=== PATIENT | female | born 1995 | race African-American/Black ===

== ENCOUNTER 2017-01-12 18:14 | Emergency (ER) | payer OTHER | END 2017-01-12 21:00 | disposition left against medical advice (07) | LOC: ER 20:17 | DX: R10.9 Unspecified abdominal pain (principal); Z53.21 Procedure and treatment not carried out due to patient leaving prior to being seen by health care provider ==

== ENCOUNTER 2019-06-25 01:42 | Emergency (ER) | payer OTHER ==
[~2019-06-25] VITALS: Ht 177.8 cm; Wt 68.0 kg
[2019-06-25] MEDS ORDERED: ACETAMINOPHEN 325MG TABLET PO ONE (02:15)
[2019-06-25 02:31] LABS: CLARITY URINE TURBID (CLEAR); COLOR URINE YELLOW (YELLOW); KETONES URINE 1+ (NEGATIVE); LEUKOCYTE ESTERASE URINE 3+ (NEGATIVE); NITRITE URINE NEGATIVE (NEGATIVE); OCCULT BLOOD URINE 2+ (NEGATIVE); PROTEIN URINE 2+ (NEGATIVE)
[2019-06-25 03:56] VITALS: BP 118/86
== END 2019-06-25 03:49 | disposition home or self-care (01) ==
LOC: ER 01:42
DX: O23.41 Unspecified infection of urinary tract in pregnancy, first trimester (principal); O26.891 Other specified pregnancy related conditions, first trimester; Z3A.09 9 weeks gestation of pregnancy; Z88.3 Allergy status to other anti-infective agents; Z88.8 Allergy status to other drugs, medicaments and biological substances
CPT/HCPCS: 81003; 81025; 87077; 87186; 99283

== ENCOUNTER 2019-11-09 12:26 | Observation (INO) | payer MEDICAID, OTHER ==
[~2019-11-09] VITALS: Ht 175.3 cm; Wt 86.2 kg
[2019-11-09 13:15] LABS: CLARITY URINE CLOUDY (CLEAR); COLOR URINE DARK YELLOW (YELLOW); KETONES URINE TRACE (NEGATIVE); LEUKOCYTE ESTERASE URINE 3+ (NEGATIVE); NITRITE URINE NEGATIVE (NEGATIVE); OCCULT BLOOD URINE TRACE (NEGATIVE); PH URINE 6.5 (4.5-8.0); PROTEIN URINE TRACE (NEGATIVE); SPECIFIC GRAVITY URINE 1.025 (1.005-1.030)
== END 2019-11-09 16:25 | disposition home or self-care (01) ==
LOC: 8 EST LDRP 12:26
PROVIDERS: ADMIT Obstetrics & Gynecology; ATTEND Obstetrics & Gynecology
DX: O46.93 Antepartum hemorrhage, unspecified, third trimester (principal); O26.893 Other specified pregnancy related conditions, third trimester; R10.9 Unspecified abdominal pain; Z3A.29 29 weeks gestation of pregnancy
CPT/HCPCS: 76805; 76818; 81003; 87086; 99281; G0378

== ENCOUNTER 2020-01-15 22:41 | Observation (INO) | payer OTHER ==
[~2020-01-15] VITALS: Ht 177.8 cm; Wt 92.5 kg
[2020-01-15] MEDS: LACTATED RINGERS 1,000 ML IV SCH (23:49)
[2020-01-16 00:18] LABS: CLARITY URINE CLEAR (CLEAR); COLOR URINE YELLOW (YELLOW); KETONES URINE NEGATIVE (NEGATIVE); LEUKOCYTE ESTERASE URINE 2+ (NEGATIVE); NITRITE URINE NEGATIVE (NEGATIVE); OCCULT BLOOD URINE NEGATIVE (NEGATIVE); PROTEIN URINE NEGATIVE (NEGATIVE); SPECIFIC GRAVITY URINE 1.017 (1.005-1.030)
[2020-01-16] MEDS: LACTATED RINGERS 1,000 ML IV SCH (01:30)
[2020-01-16] MEDS ORDERED: CEFAZOLIN 2,000 MG in DEXT 5% WATER 100 ML IV NR (02:00)
[2020-01-16] MEDS ORDERED: ACETAMINOPHEN 500MG TABLET PO NR (02:45)
[2020-01-16] MEDS ORDERED: PREN1TAB78 MT (03:20)
== END 2020-01-16 03:40 | disposition home or self-care (01) ==
LOC: 8 EST LDRP 22:41
PROVIDERS: ADMIT Obstetrics & Gynecology; ATTEND Obstetrics & Gynecology
DX: O26.893 Other specified pregnancy related conditions, third trimester (principal); O62.9 Abnormality of forces of labor, unspecified; M54.5 Low back pain; R10.30 Lower abdominal pain, unspecified; Z3A.38 38 weeks gestation of pregnancy
CPT/HCPCS: 81003; 96361; 96365; 99281; G0378; J0690; J7060; 96360

== ENCOUNTER 2020-01-25 00:23 | Inpatient (IN) | payer MEDICAID, OTHER ==
[~2020-01-25] VITALS: Ht 177.8 cm; Wt 93.0 kg
[~2020-01-25 00:23] MED LIST: PREN1TAB78 MT
[2020-01-25 01:34] LABS: CLARITY URINE CLEAR (CLEAR); COLOR URINE YELLOW (YELLOW); KETONES URINE NEGATIVE (NEGATIVE); LEUKOCYTE ESTERASE URINE NEGATIVE (NEGATIVE); NITRITE URINE NEGATIVE (NEGATIVE); OCCULT BLOOD URINE NEGATIVE (NEGATIVE); PROTEIN URINE NEGATIVE (NEGATIVE); SPECIFIC GRAVITY URINE 1.009 (1.005-1.030); UROBILINOGEN URINE 0.2 E.U./dL (0.2-1.0)
[2020-01-25] MEDS ORDERED: DEXT 5%/LR + PITOCIN 20UNITS/L 1,000 ML IV SCH ×2 (02:35→12:27)
[2020-01-25] MEDS ORDERED: NALOXONE HCL 0.4 MG/ML 1ML VIAL IM PRN (02:45)
[2020-01-25] MEDS ORDERED: MISOPROSTOL 100MCG TABLET VG SCH (02:45)
[2020-01-25] MEDS ORDERED: LIDOCAINE HCL 1% 20ML VIAL (Pyxis) INJ INFIL SCH (02:45)
[2020-01-25] MEDS ORDERED: METHYLERGONOVINE MALEATE 0.2 MG/ML IM PRN (02:45)
[2020-01-25] MEDS ORDERED: MISOPROSTOL 100MCG TABLET VG PRN (02:45)
[2020-01-25] MEDS ORDERED: CARBOPROST TROMETHAMINE 250 MCG/ML AMPUL IM PRN (02:45)
[2020-01-25] MEDS ORDERED: AMPICILLIN 2,000 MG in SODIUM CHLORIDE 0.9% 100 ML IV NR (03:00)
[2020-01-25] MEDS: LACTATED RINGERS 1,000 ML IV SCH ×2 (03:03→05:08)
[2020-01-25 04:33] LABS: BASOPHILS % 0.6 % (0.0-2.0); EOSINOPHILS % 2.7 % (0.0-5.0); HEMOGLOBIN. 11.1 g/dL (12.0-16.0); LYMPHOCYTES % 36.3 % (20.0-50.0); MEAN CORPUSCULAR HEMOGLOBIN 28.4 pg (28.0-32.0); MEAN CORPUSCULAR VOLUME 86.9 fL (81.0-99.0); MEAN PLATELET VOLUME 9.5 fl (7.4-10.4); MONOCYTES % 9.2 % (2.0-8.0); NEUTROPHILS % 51.2 % (40.0-76.0); PLATELET 300 x1000/uL (130-400); RED BLOOD CELL COUNT 3.92 mill/uL (4.2-5.4); RED CELL DISTRIBUTION WIDTH 15.3 % (11.6-14.6)
[2020-01-25 04:42] LABS: PARTIAL THROMBOPLASTIN TIME 26.6 sec (23.4-31.0); PROTHROMBIN TIME 10.1 sec (9.6-11.0)
[2020-01-25 05:43] LABS: HEPATITIS B SURFACE ANTIGEN NEGATIVE
[2020-01-25] MEDS ORDERED: AMPICILLIN 1,000 MG in SODIUM CHLORIDE 0.9% 50 ML IV SCH (09:00)
[2020-01-25] MEDS: BUTORPHANOL TARTRATE 2 MG/ML VIAL IV PRN ×2 (09:02→11:15)
[2020-01-25] MEDS ORDERED: ROPIVACAINE HCL/PF EPIDURAL 200 ML EPI SCH (09:15)
[2020-01-25] MEDS ORDERED: IBUPROFEN 400MG TABLET PO PRN (12:30)
[2020-01-25] MEDS ORDERED: ACETAMINOPHEN WITH CODEINE 300/30MG TABLET PO PRN (12:30)
[2020-01-25] MEDS ORDERED: LANOLIN OINT 7GM TUBE TOP PRN (12:30)
[2020-01-25] MEDS ORDERED: GLYCERIN/WITCH HAZEL LEAF MEDICATED PAD TOP PRN (12:30)
[2020-01-25] MEDS ORDERED: DIPHENHYDRAMINE 25MG CAPSULE PO PRN (12:30)
[2020-01-25] MEDS ORDERED: HEMORRHOIDAL SUPP PR PRN (12:30)
[2020-01-25] MEDS ORDERED: BISACODYL 10MG SUPP PR PRN (12:30)
[2020-01-25] MEDS ORDERED: BENZOCAINE/LANOLIN/ALOE VERA SPRAY TOP PRN (12:30)
[2020-01-25] MEDS: IBUPROFEN 800MG TABLET PO PRN ×2 (12:43→19:43)
[2020-01-25 13:40] VITALS: BP 134/72
[2020-01-25 14:10] VITALS: BP 119/60
[2020-01-25 14:40] VITALS: BP 137/68
[2020-01-25 16:01] LABS: CLARITY URINE CLEAR (CLEAR); COLOR URINE RED (YELLOW); KETONES URINE NEGATIVE (NEGATIVE); LEUKOCYTE ESTERASE URINE 1+ (NEGATIVE); NITRITE URINE NEGATIVE (NEGATIVE); OCCULT BLOOD URINE 3+ (NEGATIVE); PROTEIN URINE 2+ (NEGATIVE); SPECIFIC GRAVITY URINE 1.009 (1.005-1.030); UROBILINOGEN URINE 0.2 E.U./dL (0.2-1.0)
[2020-01-25 16:16] LABS: *COCAINE SCREEN URINE NEGATIVE (NEGATIVE)
[2020-01-25 16:17] LABS: METHADONE URINE SCREEN NEGATIVE (NEGATIVE); OPIATES URINE SCREEN NEGATIVE (NEGATIVE); PHENCYCLIDINE URINE SCREEN NEGATIVE (NEGATIVE)
[2020-01-25 16:18] LABS: *AMPHETAMINES SCREEN URINE NEGATIVE (NEGATIVE); *BARBITURATES SCREEN URINE NEGATIVE (NEGATIVE); *BENZODIAZEPINES SCREEN URINE NEGATIVE (NEGATIVE); CANNABINOID URINE SCREEN NEGATIVE (NEGATIVE)
[2020-01-25 19:30] VITALS: BP 128/85
[2020-01-25] MEDS: DOCUSATE SODIUM 100MG CAPSULE PO SCH (21:09)
[2020-01-26] MEDS: IBUPROFEN 800MG TABLET PO PRN ×2 (03:39→09:08)
[2020-01-26 04:00] VITALS: BP 126/71
[2020-01-26 07:22] LABS: BASOPHILS % 0.8 % (0.0-2.0); EOSINOPHILS % 2.1 % (0.0-5.0); HEMATOCRIT. 30.7 % (36.0-48.0); HEMOGLOBIN. 10.1 g/dL (12.0-16.0); LYMPHOCYTES % 18.7 % (20.0-50.0); MEAN CORPUSCULAR HEMOGLOBIN 28.3 pg (28.0-32.0); MEAN CORPUSCULAR VOLUME 86.4 fL (81.0-99.0); MEAN PLATELET VOLUME 8.8 fl (7.4-10.4); MONOCYTES % 7.4 % (2.0-8.0); PLATELET 255 x1000/uL (130-400); RED BLOOD CELL COUNT 3.56 mill/uL (4.2-5.4); RED CELL DISTRIBUTION WIDTH 15.3 % (11.6-14.6)
[2020-01-26 07:34] VITALS: BP 121/74
[2020-01-26] MEDS: PRENATAL VIT/FE FUMARATE/FA TABLET PO SCH (09:07)
[2020-01-26] MEDS: FERROUS SULFATE 325MG TABLET PO SCH ×3 (09:08→18:26)
[2020-01-26 16:26] VITALS: BP 124/68
[2020-01-26] MEDS: DOCUSATE SODIUM 100MG CAPSULE PO SCH (21:15)
[2020-01-26 22:00] VITALS: BP 121/72
[2020-01-27] MEDS: IBUPROFEN 800MG TABLET PO PRN ×2 (00:59→08:22)
[2020-01-27 07:28] VITALS: BP 123/75
[2020-01-27] MEDS: PRENATAL VIT/FE FUMARATE/FA TABLET PO SCH (08:22)
[2020-01-27] MEDS: FERROUS SULFATE 325MG TABLET PO SCH (08:22)
== END 2020-01-27 10:08 | disposition home or self-care (01) | DRG 560 ==
LOC: ER 00:23 → 8 EST LDRP 00:38 → OBSVTOIN 00:38 → 8 EST A/PP 13:23
PROVIDERS: ADMIT Obstetrics & Gynecology; ATTEND Obstetrics & Gynecology
PROC: 10E0XZZ Delivery of Products of Conception, External Approach (ICD-10-PCS; principal; 2020-01-25)
PROC: 0W8NXZZ Division of Female Perineum, External Approach (ICD-10-PCS; 2020-01-25)
DX: O41.03X0 Oligohydramnios, third trimester, not applicable or unspecified (principal); O99.824 Streptococcus B carrier state complicating childbirth; Z3A.40 40 weeks gestation of pregnancy; Z37.0 Single live birth; Z88.2 Allergy status to sulfonamides; Z88.8 Allergy status to other drugs, medicaments and biological substances; O86.20 Urinary tract infection following delivery, unspecified
CPT/HCPCS: 36415; 76805; 76818; 80305; 81003; 85025; 86592; 86703; 86762; 86850; 86900; 87340; 99281; 99285; J0290; J0595; J2590; J3490; J7050

== ENCOUNTER 2020-03-06 17:45 | Emergency (ER) | payer MEDICAID, OTHER ==
[~2020-03-06] VITALS: Ht 180.3 cm; Wt 77.0 kg
[2020-03-06] MEDS ORDERED: IBUPROFEN 600MG TABLET PO ONE (18:30)
[2020-03-06 19:09] VITALS: BP 132/76
== END 2020-03-06 19:09 | disposition home or self-care (01) ==
LOC: ER 17:45
DX: H72.91 Unspecified perforation of tympanic membrane, right ear (principal); Z88.2 Allergy status to sulfonamides; Z88.8 Allergy status to other drugs, medicaments and biological substances
CPT/HCPCS: 99283

== ENCOUNTER 2021-04-17 08:50 | Emergency (ER) | payer MEDICAID, OTHER ==
[~2021-04-17] VITALS: Ht 167.6 cm; Wt 75.0 kg
[2021-04-17 09:43] VITALS: BP 116/87
== END 2021-04-17 09:44 | disposition home or self-care (01) ==
LOC: ER 08:50
DX: T19.2XXA Foreign body in vulva and vagina, initial encounter (principal); X58.XXXA Exposure to other specified factors, initial encounter; Z88.2 Allergy status to sulfonamides
CPT/HCPCS: 99283